=== PATIENT | male | born 1960 | race Hispanic/Latino ===

== ENCOUNTER 2019-08-11 11:57 | Emergency (ER) | payer OTHER ==
[2019-08-11] MEDS ORDERED: HYDROCODONE/ACETAMINOPHEN 5/325 MG TAB ONE (13:00)
== END 2019-08-11 13:35 | disposition home or self-care (01) ==
LOC: EDH 11:57
DX: M79.672 Pain in left foot (principal); E78.00 Pure hypercholesterolemia, unspecified; Z88.0 Allergy status to penicillin
CPT/HCPCS: 73630